=== PATIENT | male | born 1960 | race Caucasian/White ===

== ENCOUNTER → 2022-02-05 | Day surgery (SDC) | payer BC ==
[2022-02-02 09:35] LABS: BASOPHILS # (AUTO) 0.1 (0.0-0.1); BASOPHILS % 0.9 % (0.0-1.0); EOSINOPHILS # (AUTO) 0.2 (0.0-0.4); EOSINOPHILS % 1.6 % (0.0-6.0); HEMATOCRIT 51.2 % (38.2-49.6); HEMOGLOBIN 16.5 g/dL (14.0-18.0); LYMPHOCYTES # (AUTO) 2.2 (1.0-3.2); LYMPHOCYTES % 23.1 % (18.0-39.1); MEAN CORPUSCULAR HEMOGLOBIN 30.2 pg (28-32); MEAN CORPUSCULAR HGB CONC 32.2 g/dL (31-35); MEAN CORPUSCULAR VOLUME 93.8 fL (81-99); MONOCYTES # (AUTO) 1.1 (0.2-0.8); MONOCYTES % 11.7 % (4.4-11.3); NEUTROPHILS % 62.2 % (38.7-80.0); PLATELET COUNT 198 x10e3/uL (140-360); RED BLOOD COUNT 5.46 x10e6/uL (4.3-5.7); RED CELL DISTRIBUTION WIDTH 13.5 % (11.7-14.4)
[2022-02-02 09:45] LABS: INR 0.94; PROTHROMBIN TIME 13.4 seconds (11.9-14.5)
[2022-02-02 09:46] LABS: PARTIAL THROMBOPLASTIN TIME 32.6 seconds (23.8-35.5)
[2022-02-02 09:53] LABS: ALBUMIN 3.7 g/dL (3.5-5.0); ALBUMIN/GLOBULIN RATIO 0.9 (0.8-2.0); ANION GAP 13.3 mmol/L (8-16); CALCIUM 9.1 mg/dL (8.4-10.2); CREATININE, SERUM 0.83 mg/dL (0.72-1.25); POTASSIUM 4.3 mmol/L (3.5-5.1)
[~2022-02-05] VITALS: Ht 175.3 cm; Wt 78.5 kg
[2022-02-05] VITALS (11 sets, daily range): BP systolic 96–142; BP diastolic 69–87
[~2022-02-05] MED LIST: FENTANYL CITRATE/PF 100MCG/2 ML INJ ONE; HEPARIN SOD/SOD CHLORIDE 2,000 ML ONE; IOPAMIDOL 370 MG/ML 100 ML INFUS..BTL INJ ONE; LIDOCAINE HCL 2% LOCAL 20 ML VIAL ONE; LISINOPRIL10 MG PO; MIDAZOLAM HCL 2 MG/2 ML VIAL ONE; NEXIUM20 MG PO; SODIUM CHLORIDE 0.9% 1000ML 1,000 ML ONE; VERAPAMIL HCL 2.5 MG/ML 2 ML VIAL ONE
== END | disposition home or self-care (01) ==
LOC: CATH LAB 07:18
PROVIDERS: ATTEND Internal Medicine Cardiovascular Disease
DX: I25.10 Atherosclerotic heart disease of native coronary artery without angina pectoris (principal); R94.39 Abnormal result of other cardiovascular function study; I10 Essential (primary) hypertension; Z01.812 Encounter for preprocedural laboratory examination; Z20.822 Contact with and (suspected) exposure to COVID-19; Z79.899 Other long term (current) drug therapy; Z82.49 Family history of ischemic heart disease and other diseases of the circulatory system
CPT/HCPCS: 36415; 80053; 80061; 85025; 85610; 85730; 93458; C1887; C1894; J2250; J3010; J7030; Q9967; U0002; 99152; J2001

== ENCOUNTER → 2024-05-12 | Day surgery (SDC) | payer OTHER ==
[~2024-05-12] MED LIST changes: +ATORVASTATIN CA10 MG PO; +FISH OIL 1,0001 EAC7; -HEPARIN SOD/SOD CHLORIDE 2,000 ML ONE; +HYOSCYAMINE SULFATE 0.5 MG/ML INJ ONE; -IOPAMIDOL 370 MG/ML 100 ML INFUS..BTL INJ ONE; -LIDOCAINE HCL 2% LOCAL 20 ML VIAL ONE; +LIDOCAINE HCL 2% LOCAL INJ 5 ML SDV VIAL INJ ONE; +MAGNESIUM100 MG; +PROPOFOL IV EMULSION 10 MG/ML 20 ML VIAL ONE; -SODIUM CHLORIDE 0.9% 1000ML 1,000 ML ONE; -VERAPAMIL HCL 2.5 MG/ML 2 ML VIAL ONE
[2024-05-12] MEDS: LACTATED RINGER'S 1,000 ML ONE (08:02)
[2024-05-12 10:03] VITALS: BP 121/72; PULSE 76; RESP 18; O2SAT 97
== END | disposition home or self-care (01) ==
LOC: OR 06:59
PROVIDERS: ATTEND Internal Medicine Gastroenterology
DX: Z12.11 Encounter for screening for malignant neoplasm of colon (principal); D12.3 Benign neoplasm of transverse colon; D12.5 Benign neoplasm of sigmoid colon; D12.8 Benign neoplasm of rectum; K57.30 Diverticulosis of large intestine without perforation or abscess without bleeding; K64.8 Other hemorrhoids; I10 Essential (primary) hypertension; E78.5 Hyperlipidemia, unspecified; F17.200 Nicotine dependence, unspecified, uncomplicated; Z88.0 Allergy status to penicillin; Z01.810 Encounter for preprocedural cardiovascular examination; Z79.899 Other long term (current) drug therapy
CPT/HCPCS: 45385; 93005; J1980; J2001; J2250; J2704; J3010; J7121; 45378